=== PATIENT | male | born 1995 | race Caucasian/White ===

== ENCOUNTER 2018-08-05 23:31 | Emergency (ER) | payer BC, OTHER ==
--- NOTE | 2018-08-05 23:51 | EDPHY ---
H & P Stated Complaint: R shoulder inj during [email or web address], hit wall Time Seen by Provider: 08/05/18 23:39 HPI/ROS: Chief Complaint: Shoulder injury HPI: 22-year-old male injuries shoulder playing racquetball. Patient states he ran into the wall. Immediate onset of right shoulder pain. Hurts to move his arm. He has a prior scapular fracture on that side about 8 years ago. Did not hit his head. No loss of conscious. No numbness or weakness. ROS: 10 systems were reviewed and were negative except those elements noted in the HPI. Social History: [No] smoking, [no] alcohol, [ no recreational drug use] Family History: [non-contributory] Physical Exam: General: Awake, alert, no distress Right shoulder: Patient has tenderness over the AC joint and distal clavicle. Mild deformity with edema. He is able to abduct to 45. Pain with internal rotation. No proximal humeral tenderness. 2+ radial ulnar pulses. Sensation intact in the radial, median, and ulnar nerve distribution. Capillary refills less than 2 sec. Sensations intact over the deltoid. Skin: No rash - Personal History Current Tetanus Diphtheria and Acellular Pertussis (TDAP): Yes - Medical/Surgical History Hx Asthma: No Hx Chronic Respiratory Disease: No Hx Diabetes: No Hx Cardiac Disease: No Hx Renal Disease: No Hx Cirrhosis: No Hx Alcoholism: No Hx HIV/AIDS: No Other PMH: healthy per pt - Social History Smoking Status: Never smoked Constitutional: Initial Vital Signs Temperature (C) 36.8 C 08/05/18 23:34 Heart Rate 100 08/05/18 23:34 Respiratory Rate 17 08/05/18 23:34 Blood Pressure 134/87 H 08/05/18 23:34 O2 Sat (%) 94 08/05/18 23:34 O2 Delivery Mode Room Air Allergies/Adverse Reactions: No Known Allergies Allergy (Verified 08/05/18 23:34) Medical Decision Making - Diagnostics Imaging Results: Right shoulder x-ray shows no acute fracture. Questionable AC joint separation. My interpretation. ED Course/Re-evaluation: 22-year-old with shoulder pain. No fracture. X-ray possible AC joint separation. Patient be placed in a sling and referred to Orthopedics. Departure - Departure Disposition: Home, Routine, Self-Care Clinical Impression: Shoulder separation Condition: Good Instructions: Acromioclavicular Separation (ED), How to Use a Sling (ED) Additional Instructions: Take ibuprofen, 600 mg every 8 hr. You may alternate with acetaminophen, 1000 mg every 8 hr. Wear the sling at all times until your seen by orthopedist. Follow up with orthopedist in 3-4 days for further evaluation. Referrals: Trent Ibrahim MD [Medical Doctor] - As per Instructions
[2018-08-06 00:46] VITALS: BP 152/74
== END 2018-08-06 00:44 | disposition home or self-care (01) ==
DX: S43.004A Unspecified dislocation of right shoulder joint, initial encounter (principal); W22.01XA Walked into wall, initial encounter; Y93.73 Activity, racquet and hand sports; Y92.312 Tennis court as the place of occurrence of the external cause
CPT/HCPCS: A4565